=== PATIENT | female | born 1990 | race American Indian/Alaskan Native ===

== ENCOUNTER 2016-11-19 12:36 | Emergency (ER) | payer MEDICAID ==
[2016-11-19 12:53] VITALS: BP 130/88
[2016-11-19] MEDS ORDERED: PROVENTIL IH ONE (12:56)
[2016-11-19] MEDS ORDERED: TYLENOL #3 PO ONE (12:58)
--- NOTE | 2016-11-19 12:59 | Emergency Department Report ---
Chief Complaint: Adult Asthma Stated Complaint: ASTHMA Time Seen by Provider: 11/19/16 12:54 - HPI History of Present Illness: 26-year-old -[place]ish female comes in for complaint of shortness of breath 1 month. Patient works as a history of asthma and was recently seen about 2 weeks ago in the ER in [place]. At that time they only gave her a limited supply of medication. Patient comes in today still complains of shortness of breath as well as coughing up yellow and green mucus. Patient denies any fever chills no nausea vomiting she complains of headaches. Patient complains of chest and back pain with deep breaths.. Is just completed a course of azithromycin. - Exam Vital Signs: Vital Signs 11/19/16 12:47 Temperature 98.3 F Pulse Rate 118 H Respiratory 24 Rate Blood Pressure 130/88 O2 Sat by Pulse 100 Oximetry Physical Exam: He is alert and oriented 3 cardiovascular she is mildly tachycardic, mildly tachypneic at 24, she is satting 100% on room air. There is some inspiratory wheeze bilateral. MSE screening note: Focused history and physical exam performed. Due to findings the following was ordered: Patient's been ordered a albuterol neb 5 mg, Solu-Medrol 40 mg IM and Tylenol No. 3 by mouth. ED Disposition for MSE Condition: Stable
[2016-11-19] MEDS ORDERED: DUONEB 0.5 MG-3 MG/3 ML SOLN IH ONE (14:47)
--- NOTE | 2016-11-19 14:52 | Emergency Department Report ---
ED General Adult HPI - General Chief complaint: Adult Asthma Stated complaint: ASTHMA Time Seen by Provider: 11/19/16 12:54 Source: patient Mode of arrival: Ambulatory Limitations: No Limitations - History of Present Illness Initial comments: PT states she has been wheezing and coughing for a month. PT states she has been given inhalers but they don't work. PT states she was recently seen at ED in [place] and she finished steroids and Z-pack last week. PT states she can not sleep because she is coughing. MD Complaint: asthma exacerbation Onset/Timin -: Gradual, month(s) Location: chest, back Severity scale (0 -10): 6 Quality: other (tight ) Associated Symptoms: cough, malaise. denies: fever/chills, nausea/vomiting - Related Data Allergies Allergy/AdvReac Type Severity Reaction Status Date / Time No Known Allergies Allergy Unverified 11/19/16 12:47 ED Review of Systems ROS: Stated complaint: ASTHMA Other details as noted in HPI Comment: All other systems reviewed and negative Constitutional: malaise. denies: fever Respiratory: cough (pt states her cough has been dry but she feels like she needs to cough up congestion ), shortness of breath, wheezing Musculoskeletal: back pain (hurts worse to cough ) ED Past Medical Hx - Past Medical History Previous Medical History?: Yes Hx Asthma: Yes - Surgical History Additional Surgical History: Ankle surgery - Social History Smoking Status: Never Smoker Substance Use Type: None ED Physical Exam - General Limitations: No Limitations General appearance: alert, in no apparent distress - Head Head exam: Present: atraumatic, normocephalic, normal inspection - Eye Eye exam: Present: normal appearance. Absent: conjunctival injection - ENT ENT exam: Present: normal exam, normal orophraynx - Neck Neck exam: Present: normal inspection, full ROM - Respiratory Respiratory exam: Present: wheezes, other (agustin lower lobes with exp wheeze ). Absent: respiratory distress - Cardiovascular Cardiovascular Exam: Present: normal rhythm, tachycardia - GI/Abdominal GI/Abdominal exam: Present: soft. Absent: tenderness - Extremities Exam Extremities exam: Present: normal inspection, full ROM - Back Exam Back exam: Present: normal inspection, full ROM - Neurological Exam Neurological exam: Present: alert, oriented X3 - Psychiatric Psychiatric exam: Present: normal affect, normal mood - Skin Skin exam: Present: warm, dry, intact ED Course Vital Signs 11/19/16 11/19/16 11/19/16 12:47 13:32 13:51 Temperature 98.3 F Pulse Rate 118 H Pulse Rate [ Anterior Bilateral Throughout] Pulse Rate [ 107 H 106 H Posterior Bilateral Throughout] Respiratory 24 Rate Respiratory Rate [Anterior Bilateral Throughout] Respiratory 36 H 26 H Rate [Posterior Bilateral Throughout] Blood Pressure 130/88 O2 Sat by Pulse 100 Oximetry 11/19/16 11/19/16 15:43 16:01 Temperature Pulse Rate Pulse Rate [ 83 87 Anterior Bilateral Throughout] Pulse Rate [ Posterior Bilateral Throughout] Respiratory Rate Respiratory 20 20 Rate [Anterior Bilateral Throughout] Respiratory Rate [Posterior Bilateral Throughout] Blood Pressure O2 Sat by Pulse Oximetry - Reevaluation(s) Reevaluation #1: 11/19/16 14:51 PT states she feels better after meds and neb. PT still with exp wheeze, will repeat neb and re-evaluate Reevaluation #2: 11/19/16 16:41 PT states she is feeling better sp neb. pt with slight wheeze agustin but no acute resp distress. - Pulse Oximetry Interpretation Digit-Finger Initial Pulse Oximetry Readin Actions Taken: none ED Medical Decision Making - Differential Diagnosis asthma exacerbation, bronchitis Critical care attestation.: If time is entered above; I have spent that time in minutes in the direct care of this critically ill patient, excluding procedure time. ED Disposition Clinical Impression: Asthmatic bronchitis with acute exacerbation Disposition: DISCHARGED TO HOME OR SELFCARE Is pt being admited?: No Does the pt Need Aspirin: No Condition: Stable Instructions: Asthma (ED) Referrals: MARY FRANK MD [Primary Care Provider] - 3-5 Days LILLIAM MEEK MD [Staff Physician] - 3-5 Days Time of Disposition: 16:43
== END 2016-11-19 16:48 | disposition home or self-care (01) ==
LOC: ED 12:36
DX: J45.901 Unspecified asthma with (acute) exacerbation (principal); Z98.890 Other specified postprocedural states
CPT/HCPCS: 94640; 94644; 96372; 99283; J2920

== ENCOUNTER 2016-12-07 10:51 | Emergency (ER) | payer MEDICAID | END 2016-12-07 10:52 | disposition left against medical advice (07) | LOC: ED 10:51 | DX: J45.909 Unspecified asthma, uncomplicated (principal); Z53.21 Procedure and treatment not carried out due to patient leaving prior to being seen by health care provider ==

== ENCOUNTER 2017-01-20 12:22 | Emergency (ER) | payer MEDICAID ==
[2017-01-20 12:30] VITALS: BP 128/83
[2017-01-20] MEDS ORDERED: DUONEB 0.5 MG-3 MG/3 ML SOLN IH ONE (12:31)
[2017-01-20 13:06] LABS: Hematocrit 42.1 % (30.3-42.9); Hemoglobin 14.5 gm/dl (10.1-14.3); Mean Corpuscular HGB Conc 34 % (30-34); Mean Corpuscular Hemoglobin 32 pg (28-32); Mean Corpuscular Volume 93 fl (79-97); Platelet Count 312 K/mm3 (140-440); Red Blood Count 4.52 M/mm3 (3.65-5.03); Red Cell Distribution Width 12.9 % (13.2-15.2); White Blood Count 6.4 K/mm3 (4.5-11.0)
[2017-01-20 13:41] LABS: Anion Gap 18 mmol/L; Blood Urea Nitrogen 13 mg/dL (7-17); Calcium 9.2 mg/dL (8.4-10.2); Carbon Dioxide 23 mmol/L (22-30); Chloride 99.5 mmol/L (98-107); Glucose 90 mg/dL (65-100); Potassium 4.6 mmol/L (3.6-5.0); Sodium 136 mmol/L (137-145)
[2017-01-20] MEDS ORDERED: ATROVENT IH ONE (13:49)
[2017-01-20] MEDS ORDERED: XOPENEX IH ONE (13:49)
[2017-01-20] MEDS ORDERED: DECADRON IM ONE (13:49)
--- NOTE | 2017-01-20 13:49 | Emergency Department Report ---
HPI - General Chief Complaint: Adult Asthma Time Seen by Provider: 01/20/17 13:47 - HPI HPI: Patient here reported that she had asthma attack, patient states that her anxiety has been triggering attacks. She is out of for inhaler and a nebulizer treatment. She states she takes a combination nebulizer that includes Atrovent and albuterol. She is reporting productive cough and wheezing. She said the cough is worse at night. She is reporting that she is having a lot of mucus at the back of her throat. Reports nasal congestion. Denies any fever or chills. Denies any nausea vomiting. Denies any shortness of breath or chest pain. Pain scale is 0 out of 10. ED Past Medical Hx - Past Medical History Previous Medical History?: Yes Hx Asthma: Yes - Surgical History Past Surgical History?: Yes Additional Surgical History: Ankle surgery - Family History Family history: hypertension - Social History Smoking Status: Former Smoker Substance Use Type: None - Medications Home Medications: Home Medications Medication Instructions Recorded Confirmed Last Taken Type Benzonatate [Tessalon Perles] 100 mg PO Q8HR PRN #12 capsule 11/19/16 Unknown Rx Prednisone [predniSONE 10 mg 10 mg PO .TAPER #1 tab.ds.pk 11/19/16 Unknown Rx (6-Day Pack, 21 Tabs)] Albuterol Sulfate [Ventolin HFA] 2 puff IH Q4H PRN #1 hfa.aer.ad 01/20/17 Unknown Rx Cetirizine HCl [ZyrTEC] 10 mg PO QDAY #14 capsule 01/20/17 Unknown Rx Fluticasone [Flonase] 1 spray NS QDAY #1 bottle 01/20/17 Unknown Rx Hydroxyzine HCl 25 mg PO Q8H PRN #12 tablet 01/20/17 Unknown Rx Ipratropium/Albuterol Sulfate 1 ampul IH Q4HR PRN #1 box 01/20/17 Unknown Rx [Duoneb 0.5 mg-3 mg/3 ml Soln] guaiFENesin/CODEINE [Robitussin AC] 10 ml PO QHS PRN #70 oral.liqd 01/20/17 Unknown Rx predniSONE [Deltasone] 50 mg PO QDAY #6 tab 01/20/17 Unknown Rx ED Review of Systems ROS: Stated complaint: ASTHMA ATTACK Other details as noted in HPI Comment: All other systems reviewed and negative Constitutional: denies: chills, fever Eyes: denies: eye discharge ENT: congestion. denies: ear pain, throat pain Respiratory: cough, wheezing. denies: orthopnea, shortness of breath, SOB with exertion, SOB at rest, stridor Cardiovascular: denies: chest pain, palpitations, edema, syncope Gastrointestinal: denies: abdominal pain, nausea, vomiting Musculoskeletal: denies: back pain, arthralgia Skin: denies: rash Neurological: denies: headache, numbness, paresthesias, abnormal gait, vertigo Physical Exam - Physical Exam Vital Signs: Vital Signs 01/20/17 01/20/17 01/20/17 12:27 12:36 12:54 Temperature 98.2 F Pulse Rate 104 H Pulse Rate [ 97 H 101 H Posterior Bilateral Throughout] Respiratory 18 Rate Respiratory 22 20 Rate [Posterior Bilateral Throughout] Blood Pressure 128/83 O2 Sat by Pulse 100 Oximetry Vital Signs 01/20/17 01/20/17 01/20/17 12:27 12:36 12:54 Temperature 98.2 F Pulse Rate 104 H Pulse Rate [ 97 H 101 H Posterior Bilateral Throughout] Respiratory 18 Rate Respiratory 22 20 Rate [Posterior Bilateral Throughout] Blood Pressure 128/83 O2 Sat by Pulse 100 Oximetry 01/20/17 01/20/17 01/20/17 13:57 14:22 14:44 Temperature Pulse Rate 80 Pulse Rate [ 104 H 107 H Posterior Bilateral Throughout] Respiratory Rate Respiratory 18 18 Rate [Posterior Bilateral Throughout] Blood Pressure O2 Sat by Pulse Oximetry General: This is a 26-year-old female well-nourished well-developed in no acute distress. Physical Exam: Head: Normocephalic atraumatic Mouth: Moist, no pharyngeal exudate or erythema. Uvula is midline and oral airway is patent. No gingival enlargement or dental tenderness. No facial swelling. No peritonsillar abscesses. Neck: Supple, no C-spine tenderness, no tracheal deviation. Nontender to palpate. no adenopathy Ears: Bilateral TMs congested without erythema .bilateral EAC without any redness swelling or drainage Eyes: Bilateral pupils equal and reactive to light, bilateral EOM intact. Bilateral sclera and conjunctiva without injection. Normal accommodation Nose: Mucosa moist, positive congestion no erythema. Positive clear drainage. maxillary and frontal sinus non-tender to palpate. Lungs: Scattered wheezing to lung goodman. Normal work of breathing . Dry cough extremity; No CCE. +2 pulses. No neurovascular compromise Cardiovascular: S1-S2, regular rate rhythm. No murmurs. Skin: clean Dry and intact no rash no lesions Psych: anxious, cooperative ED Course Vital Signs 01/20/17 01/20/17 01/20/17 12:27 12:36 12:54 Temperature 98.2 F Pulse Rate 104 H Pulse Rate [ 97 H 101 H Posterior Bilateral Throughout] Respiratory 18 Rate Respiratory 22 20 Rate [Posterior Bilateral Throughout] Blood Pressure 128/83 O2 Sat by Pulse 100 Oximetry Vital Signs 01/20/17 01/20/17 01/20/17 12:27 12:36 12:54 Temperature 98.2 F Pulse Rate 104 H Pulse Rate [ 97 H 101 H Posterior Bilateral Throughout] Respiratory 18 Rate Respiratory 22 20 Rate [Posterior Bilateral Throughout] Blood Pressure 128/83 O2 Sat by Pulse 100 Oximetry 01/20/17 01/20/17 01/20/17 13:57 14:22 14:44 Temperature Pulse Rate 80 Pulse Rate [ 104 H 107 H Posterior Bilateral Throughout] Respiratory Rate Respiratory 18 18 Rate [Posterior Bilateral Throughout] Blood Pressure O2 Sat by Pulse Oximetry - Reevaluation(s) Reevaluation #1: 01/20/17 14:51 given DuoNeb treatment in triage area times one. She reports that she felt like she needed another treatment so she was given Xopenex 1.25 mg along with Atrovent 0.5 mg, Decadron 10 mg IM and she said she felt better. Patient was also given guaifenesin with codeine 10 mg in emergency room for cough. Reevaluation, lungs are clear. 01/20/17 14:52 01/20/17 14:53 ED Medical Decision Making - Lab Data Result diagrams: 01/20/17 12:50 01/20/17 12:50 Vital Signs 01/20/17 01/20/17 01/20/17 12:27 12:36 12:54 Temperature 98.2 F Pulse Rate 104 H Pulse Rate [ 97 H 101 H Posterior Bilateral Throughout] Respiratory 18 Rate Respiratory 22 20 Rate [Posterior Bilateral Throughout] Blood Pressure 128/83 O2 Sat by Pulse 100 Oximetry 01/20/17 01/20/17 01/20/17 13:57 14:22 14:44 Temperature Pulse Rate 80 Pulse Rate [ 104 H 107 H Posterior Bilateral Throughout] Respiratory Rate Respiratory 18 18 Rate [Posterior Bilateral Throughout] Blood Pressure O2 Sat by Pulse Oximetry - Medical Decision Making ED course: Mild asthma exacerbation, cough and anxiety. given DuoNeb treatment in triage area times one. She reports that she felt like she needed another treatment so she was given Xopenex 1.25 mg along with Atrovent 0.5 mg, Decadron 10 mg IM and she said she felt better. Patient was also given guaifenesin with codeine 10 mg in emergency room for cough. Patient is anxious and she has a history of anxiety and has an swelling of hydroxyzine requesting a refill. I discussed with patient that if she is not getting relief with her nebulizer treatment she needs to follow up with a pulmonary doctor. I discussed with her that I will refer her to primary care and also pulmonary doctor to manage asthma. She discharged home with her family with prescription for hydroxyzine, albuterol and Atrovent combination nebulizer, Flonase and Zyrtec, guaifenesin with codeine and prednisone. Critical care attestation.: If time is entered above; I have spent that time in minutes in the direct care of this critically ill patient, excluding procedure time. ED Disposition Clinical Impression: Cough, Mild anxiety Asthma exacerbation attacks Qualifiers: Asthma severity: mild intermittent Qualified Code(s): J45.21 - Mild intermittent asthma with (acute) exacerbation Upper respiratory tract infection Qualifiers: URI type: unspecified URI Qualified Code(s): J06.9 - Acute upper respiratory infection, unspecified Disposition: DISCHARGED TO HOME OR SELFCARE Is pt being admited?: No Does the pt Need Aspirin: No Condition: Stable Instructions: Asthma (ED), Acute Cough (ED), Upper Respiratory Infection (ED) Additional Instructions: Please do not drive or operate heavy machinery while taking hydroxyzine Follow-up with primary care physician and pulmonary doctor that he will refer to. Take Medication as prescribed. Your inhaler pump is for rescue only say a few using that more than twice a week he will need to follow-up with pulmonary doctor for evaluation and treatment. Avoid driving or operating heavy machinery while taking cough medicine as this will cause drowsiness. Prescriptions: guaiFENesin/CODEINE [Robitussin AC] 10 ml PO QHS PRN #70 oral.liqd PRN Reason: Cough Albuterol Sulfate [Ventolin HFA] 2 puff IH Q4H PRN #1 hfa.aer.ad PRN Reason: Cough and Wheezing Cetirizine HCl [ZyrTEC] 10 mg PO QDAY #14 capsule Fluticasone [Flonase] 1 spray NS QDAY #1 bottle Hydroxyzine HCl 25 mg PO Q8H PRN #12 tablet PRN Reason: Anxiety Ipratropium/Albuterol Sulfate [Duoneb 0.5 mg-3 mg/3 ml Soln] 1 ampul IH Q4HR PRN #1 box PRN Reason: Cough and wheezing predniSONE [Deltasone] 50 mg PO QDAY #6 tab Referrals: RADHA POWELL MD [Staff Physician] - 2-3 Days ALISON ROSA MD [Staff Physician] - 3-5 Days Forms: Accompanied Note, Work/School Release Form(ED)
[2017-01-20] MEDS ORDERED: ROBITUSSIN AC PO ONE (14:00)
== END 2017-01-20 15:20 | disposition home or self-care (01) ==
LOC: ED 12:22
DX: J45.21 Mild intermittent asthma with (acute) exacerbation (principal); J06.9 Acute upper respiratory infection, unspecified; F41.9 Anxiety disorder, unspecified; Z87.891 Personal history of nicotine dependence
CPT/HCPCS: 36415; 80048; 85027; 94640; 96372; 99283; J1100

== ENCOUNTER 2017-04-15 13:19 | Emergency (ER) | payer MEDICAID ==
[2017-04-15] MEDS ORDERED: DUONEB *Not for PRN Use IH ONE ×2 (13:33→13:39)
[2017-04-15] MEDS ORDERED: PROVENTIL IH ONE (13:47)
[2017-04-15] MEDS ORDERED: ATROVENT IH ONE (13:47)
[2017-04-15] MEDS ORDERED: MAGNESIUM SULFATE 2GM/50ML 2 GM/50 ML BAG IV ONE (13:56)
--- NOTE | 2017-04-15 13:57 | Emergency Department Report ---
ED Asthma HPI - General Chief Complaint: Adult Asthma Stated Complaint: ASTHMA Time Seen by Provider: 04/15/17 13:46 Source: patient Mode of arrival: Ambulatory Limitations: No Limitations - History of Present Illness Initial Comments: 27-year-old female past medical history asthma presents with complaint of wheezing and shortness of breath. On exam patient is awake alert 3 states that she ran out of her asthma medications and is requesting a refill. Patient states that she has had several asthma exacerbations over the last several months. Denies any history of hospitalizations for asthma denies any history of intubations. Patient is unaware of her current peak flow. Patient denies being a smoker. Patient denies any fevers or chills but does state she has had slightly productive cough over the last few days. Denies any recent travel denies any sick contacts. Patient is able to speak in full sentences on exam MD Complaint: "asthma attack", shortness of breath, wheezing -: This morning Asthma History: childhood onset, history of frequent attac, history of prior ED visit Severity: moderate Context: ran out of meds Treatments Prior to Arrival: inhaled bronchodilator, inhaled steroid - Related Data Current Asthma Therapy: inhaled bronchodilator Previous Rx's Medication Instructions Recorded Last Taken Type Benzonatate [Tessalon Perles] 100 mg PO Q8HR PRN #12 capsule 11/19/16 Unknown Rx Prednisone [predniSONE 10 mg 10 mg PO .TAPER #1 tab.ds.pk 11/19/16 Unknown Rx (6-Day Pack, 21 Tabs)] Albuterol Sulfate [Ventolin HFA] 2 puff IH Q4H PRN #1 hfa.aer.ad 01/20/17 Unknown Rx Cetirizine HCl [ZyrTEC] 10 mg PO QDAY #14 capsule 01/20/17 Unknown Rx Fluticasone [Flonase] 1 spray NS QDAY #1 bottle 01/20/17 Unknown Rx Hydroxyzine HCl 25 mg PO Q8H PRN #12 tablet 01/20/17 Unknown Rx Ipratropium/Albuterol Sulfate 1 ampul IH Q4HR PRN #1 box 01/20/17 Unknown Rx [Duoneb 0.5 mg-3 mg/3 ml Soln] guaiFENesin/CODEINE [Robitussin AC] 10 ml PO QHS PRN #70 oral.liqd 01/20/17 Unknown Rx predniSONE [Deltasone] 50 mg PO QDAY #6 tab 01/20/17 Unknown Rx ALBUTEROL NEB's [Proventil 0.083% 2.5 mg IH Q4H PRN #1 box 04/15/17 Unknown Rx NEBS] Albuterol Sulfate [Ventolin HFA] 2 puff IH Q4H PRN #1 hfa.aer.ad 04/15/17 Unknown Rx Hydroxyzine HCl 25 mg PO Q8H PRN #30 tablet 04/15/17 Unknown Rx Prednisone [predniSONE 10 mg 10 mg PO .TAPER #1 tab.ds.pk 04/15/17 Unknown Rx (6-Day Pack, 21 Tabs)] Allergies Allergy/AdvReac Type Severity Reaction Status Date / Time No Known Allergies Allergy Unverified 11/19/16 12:47 ED Review of Systems ROS: Stated complaint: ASTHMA Other details as noted in HPI Constitutional: denies: chills, fever Eyes: denies: eye pain, eye discharge, vision change ENT: denies: ear pain, throat pain Respiratory: shortness of breath, wheezing. denies: cough Cardiovascular: denies: chest pain, palpitations Endocrine: no symptoms reported Gastrointestinal: denies: abdominal pain, nausea, diarrhea Genitourinary: denies: urgency, dysuria, discharge Musculoskeletal: denies: back pain, joint swelling, arthralgia Skin: denies: rash, lesions Neurological: denies: headache, weakness, paresthesias Psychiatric: denies: anxiety, depression Hematological/Lymphatic: denies: easy bleeding, easy bruising ED Past Medical Hx - Past Medical History Previous Medical History?: Yes Hx Asthma: Yes - Surgical History Past Surgical History?: Yes Additional Surgical History: Ankle surgery - Social History Smoking Status: Never Smoker Substance Use Type: Alcohol, Prescribed - Medications Home Medications: Home Medications Medication Instructions Recorded Confirmed Last Taken Type Benzonatate [Tessalon Perles] 100 mg PO Q8HR PRN #12 capsule 11/19/16 Unknown Rx Prednisone [predniSONE 10 mg 10 mg PO .TAPER #1 tab.ds.pk 11/19/16 Unknown Rx (6-Day Pack, 21 Tabs)] Albuterol Sulfate [Ventolin HFA] 2 puff IH Q4H PRN #1 hfa.aer.ad 01/20/17 Unknown Rx Cetirizine HCl [ZyrTEC] 10 mg PO QDAY #14 capsule 01/20/17 Unknown Rx Fluticasone [Flonase] 1 spray NS QDAY #1 bottle 01/20/17 Unknown Rx Hydroxyzine HCl 25 mg PO Q8H PRN #12 tablet 01/20/17 Unknown Rx Ipratropium/Albuterol Sulfate 1 ampul IH Q4HR PRN #1 box 01/20/17 Unknown Rx [Duoneb 0.5 mg-3 mg/3 ml Soln] guaiFENesin/CODEINE [Robitussin AC] 10 ml PO QHS PRN #70 oral.liqd 01/20/17 Unknown Rx predniSONE [Deltasone] 50 mg PO QDAY #6 tab 01/20/17 Unknown Rx ALBUTEROL NEB's [Proventil 0.083% 2.5 mg IH Q4H PRN #1 box 04/15/17 Unknown Rx NEBS] Albuterol Sulfate [Ventolin HFA] 2 puff IH Q4H PRN #1 hfa.aer.ad 04/15/17 Unknown Rx Hydroxyzine HCl 25 mg PO Q8H PRN #30 tablet 04/15/17 Unknown Rx Prednisone [predniSONE 10 mg 10 mg PO .TAPER #1 tab.ds.pk 04/15/17 Unknown Rx (6-Day Pack, 21 Tabs)] ED Physical Exam - General Limitations: No Limitations General appearance: alert, in no apparent distress - Head Head exam: Present: atraumatic, normocephalic - Eye Eye exam: Present: normal appearance, PERRL, EOMI - ENT ENT exam: Present: mucous membranes moist - Neck Neck exam: Present: normal inspection - Respiratory Respiratory exam: Present: wheezes (bilateral wheezes on auscultation of both lung goodman). Absent: respiratory distress - Cardiovascular Cardiovascular Exam: Present: regular rate, normal rhythm. Absent: systolic murmur, diastolic murmur, rubs, gallop - GI/Abdominal GI/Abdominal exam: Present: soft, normal bowel sounds - Extremities Exam Extremities exam: Present: normal inspection - Back Exam Back exam: Present: normal inspection - Neurological Exam Neurological exam: Present: alert, oriented X3 - Psychiatric Psychiatric exam: Present: normal affect, normal mood - Skin Skin exam: Present: warm, dry, intact, normal color. Absent: rash ED Course Vital Signs 04/15/17 04/15/17 04/15/17 13:22 13:41 13:43 Temperature 98.1 F Pulse Rate 93 H Pulse Rate [ Bilateral Throughout] Respiratory 22 22 Rate Respiratory Rate [Bilateral Throughout] Blood Pressure [Right] O2 Sat by Pulse 100 92 99 Oximetry 04/15/17 04/15/17 04/15/17 14:08 14:33 16:26 Temperature Pulse Rate 124 H Pulse Rate [ 104 H Bilateral Throughout] Respiratory 20 18 Rate Respiratory 20 Rate [Bilateral Throughout] Blood Pressure 114/81 [Right] O2 Sat by Pulse 99 99 Oximetry ED Medical Decision Making - Lab Data Result diagrams: 04/15/17 14:05 04/15/17 14:05 - Medical Decision Making A/P: Asthma exacerbation 1-chest x-ray unremarkable, d-dimer unremarkable, labs unremarkable 2-patient experienced significant relief of wheezing and shortness of breath with prednisone and albuterol and magnesium 3-peak flow 375 L/min after second DuoNeb treatment 4- referral to primary care and pulmonology, patient requesting pulmonology referral if she states that she has had a history of more frequent attacks within the last year 5- patient's vital signs normal and oxygen over 97% on room air or discharge, patient states she feels significant relief and wheezing has significantly diminished on auscultation Critical care attestation.: If time is entered above; I have spent that time in minutes in the direct care of this critically ill patient, excluding procedure time. ED Disposition Clinical Impression: Asthma exacerbation, Wheezing Disposition: DC-01 TO HOME OR SELFCARE Is pt being admited?: No Does the pt Need Aspirin: No Condition: Stable Instructions: Asthma (ED), Reactive Airways Disease (ED) Prescriptions: ALBUTEROL NEB's [Proventil 0.083% NEBS] 2.5 mg IH Q4H PRN #1 box PRN Reason: Wheezing Albuterol Sulfate [Ventolin HFA] 2 puff IH Q4H PRN #1 hfa.aer.ad PRN Reason: Shortness Of Breath Hydroxyzine HCl 25 mg PO Q8H PRN #30 tablet PRN Reason: Congestion Prednisone [predniSONE 10 mg (6-Day Pack, 21 Tabs)] 10 mg PO .TAPER #1 tab.ds.pk Referrals: PRIMARY CARE, [Primary Care Provider] - 3-5 Days DALLIN GOVEA MD [Staff Physician] - 3-5 Days REJI CRISTOBAL MD [Staff Physician] - 3-5 Days Forms: Work/School Release Form(ED) Time of Disposition: 16:36
[2017-04-15 14:42] LABS: Basophils % (Auto) 1.1 % (0.0-1.8); Eosinophils % (Auto) 10.3 % (0.0-4.3); Hematocrit 46.4 % (30.3-42.9); Hemoglobin 15.9 gm/dl (10.1-14.3); Mean Corpuscular HGB Conc 34 % (30-34); Mean Corpuscular Hemoglobin 32 pg (28-32); Mean Corpuscular Volume 94 fl (79-97); Platelet Count 323 K/mm3 (140-440); Red Blood Count 4.93 M/mm3 (3.65-5.03); Red Cell Distribution Width 12.6 % (13.2-15.2); White Blood Count 6.3 K/mm3 (4.5-11.0)
[2017-04-15 14:53] LABS: Blood Urea Nitrogen 12 mg/dL (7-17); Calcium 9.1 mg/dL (8.4-10.2); Glucose 97 mg/dL (65-100); Sodium 136 mmol/L (137-145)
[2017-04-15 15:16] LABS: Anion Gap 18 mmol/L; Carbon Dioxide 24 mmol/L (22-30); Potassium 3.9 mmol/L (3.6-5.0)
--- NOTE | 2017-04-15 15:46 | XRay Report ---
FINAL REPORT EXAM: XR CHEST ROUTINE 2V HISTORY: shortness of breath TECHNIQUE: Frontal and lateral chest x-ray. PRIORS: None. FINDINGS: Cardiac and mediastinal silhouette within normal limits. Lungs are normally expanded without significant vascular congestion. No focal consolidation, pleural effusions or apparent pneumothorax. IMPRESSION: 1. No acute findings.
[2017-04-15 16:26] VITALS: BP 114/81
== END 2017-04-15 16:48 | disposition home or self-care (01) ==
LOC: ED 13:19
DX: J45.901 Unspecified asthma with (acute) exacerbation (principal)
CPT/HCPCS: 36415; 71020; 80048; 84703; 85025; 85379; 94640; 96365; 96375; 99284; J2930; J3475

== ENCOUNTER 2017-07-19 15:02 | Emergency (ER) | payer MEDICAID ==
[2017-07-19] MEDS ORDERED: PROVENTIL IH ONE (15:14)
[2017-07-19] MEDS ORDERED: ATROVENT IH ONE (15:15)
[2017-07-19 17:42] VITALS: BP 141/94
--- NOTE | 2017-07-19 17:54 | Emergency Department Report ---
ED Asthma HPI - General Chief Complaint: Adult Asthma Stated Complaint: COUGHING Source: patient Mode of arrival: Ambulatory Limitations: No Limitations - History of Present Illness Initial Comments: 27 y/o F with a remote asthma hx presents to the ER complaining of an asthma exacerbation since yesterday. She states that she has been trying her at home Symbicort and albuterol with no help thus far. She states that she has a long hx of asthma and has been seen numerous times for the same issue. She admits to wheezing, SOB,productive cough, and sore throat. She also admits to mild sinus congestion. no reported over-night hospitalizations or intubations for asthma. non smoker. She denies any chest pain, fever, chills, nausea, or vomiting. lmp: 07/16/17 NKDA. BROOKS Complaint: "asthma attack", shortness of breath, wheezing -: days(s) (1 day) Asthma History: childhood onset, history of frequent attac, history of prior ED visit Severity: moderate Context: none known Associated Symptoms: productive cough Treatments Prior to Arrival: inhaled bronchodilator - Related Data Current Asthma Therapy: inhaled bronchodilator Previous Rx's Medication Instructions Recorded Last Taken Type Benzonatate [Tessalon Perles] 100 mg PO Q8HR PRN #12 capsule 11/19/16 Unknown Rx Prednisone [predniSONE 10 mg 10 mg PO .TAPER #1 tab.ds.pk 11/19/16 Unknown Rx (6-Day Pack, 21 Tabs)] Albuterol Sulfate [Ventolin HFA] 2 puff IH Q4H PRN #1 hfa.aer.ad 01/20/17 Unknown Rx Cetirizine HCl [ZyrTEC] 10 mg PO QDAY #14 capsule 01/20/17 Unknown Rx Fluticasone [Flonase] 1 spray NS QDAY #1 bottle 01/20/17 Unknown Rx Hydroxyzine HCl 25 mg PO Q8H PRN #12 tablet 01/20/17 Unknown Rx Ipratropium/Albuterol Sulfate 1 ampul IH Q4HR PRN #1 box 01/20/17 Unknown Rx [Duoneb 0.5 mg-3 mg/3 ml Soln] guaiFENesin/CODEINE [Robitussin AC] 10 ml PO QHS PRN #70 oral.liqd 01/20/17 Unknown Rx predniSONE [Deltasone] 50 mg PO QDAY #6 tab 01/20/17 Unknown Rx Albuterol Sulfate [Ventolin HFA] 2 puff IH Q4H PRN #1 hfa.aer.ad 04/15/17 Unknown Rx Hydroxyzine HCl 25 mg PO Q8H PRN #30 tablet 04/15/17 Unknown Rx Prednisone [predniSONE 10 mg 10 mg PO .TAPER #1 tab.ds.pk 04/15/17 Unknown Rx (6-Day Pack, 21 Tabs)] ALBUTEROL NEB's [Proventil 0.083% 2.5 mg IH Q4H PRN #1 box 07/19/17 Unknown Rx NEBS] Benzonatate [Tessalon Perles] 100 mg PO Q8HR PRN #15 capsule 07/19/17 Unknown Rx Budesonide/Formoterol Fumarate 10.2 gm IH BID PRN #1 hfa.aer.ad 07/19/17 Unknown Rx [Symbicort 160-4.5 Mcg Inhaler] predniSONE [Deltasone] 20 mg PO QDAY #5 tab 07/19/17 Unknown Rx Allergies Allergy/AdvReac Type Severity Reaction Status Date / Time No Known Allergies Allergy Unverified 11/19/16 12:47 ED Review of Systems ROS: Stated complaint: COUGHING Other details as noted in HPI Constitutional: denies: chills, fever Eyes: denies: eye pain, eye discharge, vision change ENT: throat pain, congestion Respiratory: cough, shortness of breath, wheezing Cardiovascular: denies: chest pain, palpitations Gastrointestinal: denies: abdominal pain, nausea, diarrhea Genitourinary: denies: urgency, dysuria, discharge Musculoskeletal: denies: back pain, joint swelling, arthralgia Skin: denies: rash, lesions Neurological: denies: headache, weakness, paresthesias Psychiatric: denies: anxiety, depression ED Past Medical Hx - Past Medical History Previous Medical History?: Yes Hx Asthma: Yes - Surgical History Past Surgical History?: Yes Additional Surgical History: Ankle surgery - Social History Smoking Status: Never Smoker Substance Use Type: None - Medications Home Medications: Home Medications Medication Instructions Recorded Confirmed Last Taken Type Benzonatate [Tessalon Perles] 100 mg PO Q8HR PRN #12 capsule 11/19/16 Unknown Rx Prednisone [predniSONE 10 mg 10 mg PO .TAPER #1 tab.ds.pk 11/19/16 Unknown Rx (6-Day Pack, 21 Tabs)] Albuterol Sulfate [Ventolin HFA] 2 puff IH Q4H PRN #1 hfa.aer.ad 01/20/17 Unknown Rx Cetirizine HCl [ZyrTEC] 10 mg PO QDAY #14 capsule 01/20/17 Unknown Rx Fluticasone [Flonase] 1 spray NS QDAY #1 bottle 01/20/17 Unknown Rx Hydroxyzine HCl 25 mg PO Q8H PRN #12 tablet 01/20/17 Unknown Rx Ipratropium/Albuterol Sulfate 1 ampul IH Q4HR PRN #1 box 01/20/17 Unknown Rx [Duoneb 0.5 mg-3 mg/3 ml Soln] guaiFENesin/CODEINE [Robitussin AC] 10 ml PO QHS PRN #70 oral.liqd 01/20/17 Unknown Rx predniSONE [Deltasone] 50 mg PO QDAY #6 tab 01/20/17 Unknown Rx Albuterol Sulfate [Ventolin HFA] 2 puff IH Q4H PRN #1 hfa.aer.ad 04/15/17 Unknown Rx Hydroxyzine HCl 25 mg PO Q8H PRN #30 tablet 04/15/17 Unknown Rx Prednisone [predniSONE 10 mg 10 mg PO .TAPER #1 tab.ds.pk 04/15/17 Unknown Rx (6-Day Pack, 21 Tabs)] ALBUTEROL NEB's [Proventil 0.083% 2.5 mg IH Q4H PRN #1 box 07/19/17 Unknown Rx NEBS] Benzonatate [Tessalon Perles] 100 mg PO Q8HR PRN #15 capsule 07/19/17 Unknown Rx Budesonide/Formoterol Fumarate 10.2 gm IH BID PRN #1 hfa.aer.ad 07/19/17 Unknown Rx [Symbicort 160-4.5 Mcg Inhaler] predniSONE [Deltasone] 20 mg PO QDAY #5 tab 07/19/17 Unknown Rx ED Physical Exam - General Limitations: No Limitations General appearance: alert, in no apparent distress - Head Head exam: Present: atraumatic, normocephalic - Eye Eye exam: Present: normal appearance, PERRL Pupils: Present: normal accommodation - ENT ENT exam: Present: mucous membranes moist, other (no evidence of asbscess or exudates, very mild clear nasal congestion noted in b/l nasal canals) - Neck Neck exam: Present: normal inspection, full ROM - Respiratory Respiratory exam: Present: normal lung sounds bilaterally, other (there was no wheezing, resp distress, or accessory muscle usage noted when I examined her after breathing treatments were given- she was speaking in full sentences to me with no issues, however, triage stated that pt had diffuse expiratory wheezes and was sliightly labored upon arrival to the ED) - Cardiovascular Cardiovascular Exam: Present: regular rate, normal rhythm. Absent: systolic murmur, diastolic murmur, rubs, gallop - GI/Abdominal GI/Abdominal exam: Present: soft, normal bowel sounds - Neurological Exam Neurological exam: Present: alert, oriented X3 - Psychiatric Psychiatric exam: Present: normal affect, normal mood ED Course Vital Signs 07/19/17 07/19/17 15:06 17:40 Temperature 98.2 F 97.4 F L Pulse Rate 97 H 86 Respiratory 22 18 Rate Blood Pressure 134/76 Blood Pressure 141/94 [Right] O2 Sat by Pulse 98 97 Oximetry ED Medical Decision Making - Medical Decision Making Pt denied CXR and further cardiac/pulmonary work-up at this time. Risks were explained to the patient with a witness. She signed AMA form for refusal of services prior to discharge from the ER. She states that she has come to the ER multiple times for the same issue and she has had a complete work-up with nothing found and she states that she does not want to go through all that at this time. pt was given proventil nebs and atrovent along with solumedrol 125 mg here in the ED with total improvement of her symptoms. Pt had no wheezing and no respiratory distress s/p this treatment. Pt was discharged home with refills of her 'home" medications: Symbicort and albuterol nebs. She was also given prednisone steriod for the asthma exacerbation and tessalon perles for the cough. Referrals to pulmonary and pcp provided for the patient today. Pt was discharged in stable condition, alert and oriented, and in no respiratory distress. She was sepaking to me in full sentences without issues. O2 sat was 97% and resp rate was 18 at discharge. Critical care attestation.: If time is entered above; I have spent that time in minutes in the direct care of this critically ill patient, excluding procedure time. ED Disposition Clinical Impression: Asthma exacerbation Qualifiers: Asthma severity: moderate Asthma persistence: unspecified Qualified Code(s): J45.901 - Unspecified asthma with (acute) exacerbation Disposition: - TO HOME OR SELFCARE Is pt being admited?: No Does the pt Need Aspirin: No Condition: Stable Instructions: Albuterol (By breathing), Budesonide/Formoterol (By breathing) Additional Instructions: Please be advised that cough suppressant may make you drowsy. Please take your medications as directed. Please follow-up with PCP within 1 week. referral to a marine oiler has been provided to you please follow-up with them for continued care within 3-5 days. Please return to the ER immediately if your presenting symptoms progress or worsen. Prescriptions: ALBUTEROL NEB's [Proventil 0.083% NEBS] 2.5 mg IH Q4H PRN #1 box PRN Reason: Wheezing Benzonatate [Tessalon Perles] 100 mg PO Q8HR PRN #15 capsule PRN Reason: cough Budesonide/Formoterol Fumarate [Symbicort 160-4.5 Mcg Inhaler] 10.2 gm IH BID PRN #1 hfa.aer.ad PRN Reason: asthma predniSONE [Deltasone] 20 mg PO QDAY #5 tab Referrals: [facility] [Outside] - 3-5 Days [facility] [Outside] - 3-5 Days [facility], [Primary Care Provider] - 3-5 Days JANNA SPARKS MD [Staff Physician] - 3-5 Days [facility] [Referring] - 3-5 Days Forms: Work/School Release Form(ED)
== END 2017-07-19 17:54 | disposition home or self-care (01) ==
LOC: ED 15:02
DX: J45.901 Unspecified asthma with (acute) exacerbation (principal)
CPT/HCPCS: 94640; 96372; 99283; J2930

== ENCOUNTER 2017-10-09 11:34 | Emergency (ER) | payer MEDICAID | END 2017-10-09 11:51 | disposition left against medical advice (07) | LOC: ED 11:34 | DX: R06.02 Shortness of breath (principal); Z53.21 Procedure and treatment not carried out due to patient leaving prior to being seen by health care provider ==

== ENCOUNTER 2018-12-08 21:34 | Emergency (ER) | payer MEDICAID ==
[2018-12-08 21:39] VITALS: BP 155/99
[2018-12-08] MEDS ORDERED: SOLU-Medrol IV ONE (21:43)
[2018-12-08] MEDS ORDERED: DUONEB *Not for PRN Use IH ONE (21:43)
--- NOTE | 2018-12-08 21:46 | Emergency Department Report ---
Blank Doc - Documentation Documentation: 28 y o female with athsma presents with asthma exacerbation out of meds states shes about 6 weeks , upt at home solumedrol albuterol ACC evaluate
[2018-12-08] MEDS ORDERED: PROVENTIL IH ONE ×2 (21:50→22:00)
[2018-12-09] MEDS ORDERED: SOLU-Medrol ONE (01:01)
[2018-12-09] MEDS ORDERED: SOLU-Medrol IM ONE (01:05)
--- NOTE | 2018-12-09 01:05 | Emergency Department Report ---
ED Asthma HPI - General Chief Complaint: Adult Asthma Stated Complaint: ASTHMA ATTACK Time Seen by Provider: 12/08/18 21:41 Source: patient Mode of arrival: Ambulatory Limitations: No Limitations - History of Present Illness Initial Comments: 28-year-old -Martiniquais female comes to the emergency room for any asthma symptoms 1 week. Patient reports that she ran out of her inhalers. Patient reports she's been out of her albuterol as a medication for months. She reports she is 6 weeks . She denies any chest pain no shortness of breathing. -: week(s) (2) Severity: mild Context: ran out of meds Associated Symptoms: dry cough Treatments Prior to Arrival: other (normal saline nebulizer treatments) - Related Data Current Asthma Therapy: none Previous Rx's Medication Instructions Recorded Last Taken Type Benzonatate [Tessalon Perles] 100 mg PO Q8HR PRN #12 capsule 11/19/16 Unknown Rx Prednisone [predniSONE 10 mg 10 mg PO .TAPER #1 tab.ds.pk 11/19/16 Unknown Rx (6-Day Pack, 21 Tabs)] Albuterol Sulfate [Ventolin HFA] 2 puff IH Q4H PRN #1 hfa.aer.ad 01/20/17 Unknown Rx Cetirizine HCl [ZyrTEC] 10 mg PO QDAY #14 capsule 01/20/17 Unknown Rx Fluticasone [Flonase] 1 spray NS QDAY #1 bottle 01/20/17 Unknown Rx Ipratropium/Albuterol Sulfate 1 ampul IH Q4HR PRN #1 box 01/20/17 Unknown Rx [Duoneb 0.5 mg-3 mg/3 ml Soln] guaiFENesin/CODEINE [Robitussin AC] 10 ml PO QHS PRN #70 oral.liqd 01/20/17 Unknown Rx hydrOXYzine HCl [Hydroxyzine HCl] 25 mg PO Q8H PRN #12 tablet 01/20/17 Unknown Rx predniSONE [Deltasone] 50 mg PO QDAY #6 tab 01/20/17 Unknown Rx Albuterol Sulfate [Ventolin HFA] 2 puff IH Q4H PRN #1 hfa.aer.ad 04/15/17 Unknown Rx Prednisone [predniSONE 10 mg 10 mg PO .TAPER #1 tab.ds.pk 04/15/17 Unknown Rx (6-Day Pack, 21 Tabs)] hydrOXYzine HCl [Hydroxyzine HCl] 25 mg PO Q8H PRN #30 tablet 04/15/17 Unknown Rx ALBUTEROL NEB's [Proventil 0.083% 2.5 mg IH Q4H PRN #1 box 07/19/17 Unknown Rx NEBS] Benzonatate [Tessalon Perles] 100 mg PO Q8HR PRN #15 capsule 07/19/17 Unknown Rx predniSONE [Deltasone] 20 mg PO QDAY #5 tab 07/19/17 Unknown Rx Budesonide/Formoterol Fumarate 10.2 gm IH BID PRN #1 hfa.aer.ad 12/09/18 Unknown Rx [Symbicort 160-4.5 Mcg Inhaler] Allergies Allergy/AdvReac Type Severity Reaction Status Date / Time No Known Allergies Allergy Unverified 11/19/16 12:47 ED Review of Systems ROS: Stated complaint: ASTHMA ATTACK Other details as noted in HPI Comment: All other systems reviewed and negative Constitutional: denies: chills, fever Eyes: denies: eye pain, eye discharge, vision change ENT: denies: ear pain, throat pain Respiratory: cough. denies: shortness of breath, wheezing Cardiovascular: denies: chest pain, palpitations Endocrine: no symptoms reported Gastrointestinal: denies: abdominal pain, nausea, diarrhea Genitourinary: denies: urgency, dysuria, discharge Musculoskeletal: denies: back pain, joint swelling, arthralgia Skin: denies: rash, lesions Neurological: denies: headache, weakness, paresthesias Psychiatric: denies: anxiety, depression Hematological/Lymphatic: denies: easy bleeding, easy bruising ED Past Medical Hx - Past Medical History Hx Psychiatric Treatment: Yes (Anxiety) Hx Asthma: Yes - Surgical History Past Surgical History?: Yes Additional Surgical History: Ankle surgery - Social History Smoking Status: Never Smoker Substance Use Type: None - Medications Home Medications: Home Medications Medication Instructions Recorded Confirmed Last Taken Type Benzonatate [Tessalon Perles] 100 mg PO Q8HR PRN #12 capsule 11/19/16 Unknown Rx Prednisone [predniSONE 10 mg 10 mg PO .TAPER #1 tab.ds.pk 11/19/16 Unknown Rx (6-Day Pack, 21 Tabs)] Albuterol Sulfate [Ventolin HFA] 2 puff IH Q4H PRN #1 hfa.aer.ad 01/20/17 Unknown Rx Cetirizine HCl [ZyrTEC] 10 mg PO QDAY #14 capsule 01/20/17 Unknown Rx Fluticasone [Flonase] 1 spray NS QDAY #1 bottle 01/20/17 Unknown Rx Ipratropium/Albuterol Sulfate 1 ampul IH Q4HR PRN #1 box 01/20/17 Unknown Rx [Duoneb 0.5 mg-3 mg/3 ml Soln] guaiFENesin/CODEINE [Robitussin AC] 10 ml PO QHS PRN #70 oral.liqd 01/20/17 Unknown Rx hydrOXYzine HCl [Hydroxyzine HCl] 25 mg PO Q8H PRN #12 tablet 01/20/17 Unknown Rx predniSONE [Deltasone] 50 mg PO QDAY #6 tab 01/20/17 Unknown Rx Albuterol Sulfate [Ventolin HFA] 2 puff IH Q4H PRN #1 hfa.aer.ad 04/15/17 Unknown Rx Prednisone [predniSONE 10 mg 10 mg PO .TAPER #1 tab.ds.pk 04/15/17 Unknown Rx (6-Day Pack, 21 Tabs)] hydrOXYzine HCl [Hydroxyzine HCl] 25 mg PO Q8H PRN #30 tablet 04/15/17 Unknown Rx ALBUTEROL NEB's [Proventil 0.083% 2.5 mg IH Q4H PRN #1 box 07/19/17 Unknown Rx NEBS] Benzonatate [Tessalon Perles] 100 mg PO Q8HR PRN #15 capsule 07/19/17 Unknown Rx predniSONE [Deltasone] 20 mg PO QDAY #5 tab 07/19/17 Unknown Rx Budesonide/Formoterol Fumarate 10.2 gm IH BID PRN #1 hfa.aer.ad 12/09/18 Unknown Rx [Symbicort 160-4.5 Mcg Inhaler] ED Physical Exam - General Limitations: No Limitations General appearance: alert, in no apparent distress - Head Head exam: Present: atraumatic, normocephalic - Eye Eye exam: Present: EOMI - ENT ENT exam: Present: mucous membranes moist - Neck Neck exam: Present: normal inspection - Respiratory Respiratory exam: Present: normal lung sounds bilaterally. Absent: respiratory distress - Cardiovascular Cardiovascular Exam: Present: regular rate (recheck by provider is 96) - GI/Abdominal GI/Abdominal exam: Present: soft, normal bowel sounds - Neurological Exam Neurological exam: Present: alert, oriented X3 - Psychiatric Psychiatric exam: Present: normal affect, normal mood - Skin Skin exam: Present: warm, dry, intact, normal color. Absent: rash ED Course Vital Signs 12/08/18 12/08/18 12/08/18 21:38 21:41 21:50 Temperature 98.1 F 98.1 F Pulse Rate 124 H 115 H Pulse Rate [ 104 H Anterior Bilateral] Respiratory 18 18 Rate Respiratory 17 Rate [Anterior Bilateral] Blood Pressure 155/99 155/99 O2 Sat by Pulse 97 98 Oximetry 12/08/18 22:02 Temperature Pulse Rate Pulse Rate [ 100 H Anterior Bilateral] Respiratory Rate Respiratory 18 Rate [Anterior Bilateral] Blood Pressure O2 Sat by Pulse Oximetry ED Medical Decision Making - Medical Decision Making Assessment evaluated by this provider fast track. Patient's had DuoNeb with albuterol and Solu-Medrol 125 mg IM. Patient was discharged home on Symbicort and referral to follow up with her primary care provider and primary [facility] provider. Critical care attestation.: If time is entered above; I have spent that time in minutes in the direct care of this critically ill patient, excluding procedure time. ED Disposition Clinical Impression: Asthma, Medication refill Disposition: [id number]-01 TO HOME OR SELFCARE Is pt being admited?: No Does the pt Need Aspirin: No Condition: Stable Instructions: Asthma (ED) Additional Instructions: Please us inhaler as prescribed. Follow-up with your primary care provider and/or [facility] provider. Prescriptions: Budesonide/Formoterol Fumarate [Symbicort 160-4.5 Mcg Inhaler] 10.2 gm IH BID PRN #1 hfa.aer.ad PRN Reason: asthma Referrals: AALIYAH RAMIREZ MD [Primary Care Provider] - 3-5 Days [facility] [Provider Group] - 3-5 Days [facility] [Provider Group] - 3-5 Days
== END 2018-12-09 01:15 | disposition home or self-care (01) ==
LOC: ED 21:34
DX: O99.511 Diseases of the respiratory system complicating pregnancy, first trimester (principal); J45.909 Unspecified asthma, uncomplicated; Z3A.01 Less than 8 weeks gestation of pregnancy
CPT/HCPCS: 94640; 96372; 99282; J2930

== ENCOUNTER 2019-06-29 12:37 | Emergency (ER) | payer MEDICAID ==
[2019-06-29 12:54] VITALS: BP 139/82
--- NOTE | 2019-06-29 13:00 | Event Note ---
ED Screening Note Date of service: 06/29/19 Time: 12:53 ED Screening Note: This is a 29 y.o. F. that presents to the ER with left sided facial swelling upon awaking this morning. This initial assessment/diagnostic orders/clinical plan/treatment(s) is/are subject to change based on patients health status, clinical progression and re- assessment by fellow clinical providers in the ED. Further treatment and workup at subsequent clinical providers discretion. Patient/guardian urged not to elope from the ED as their condition may be serious if not clinically assessed and managed. Initial orders include: CT of orbit/ear/fossa
--- NOTE | 2019-06-29 14:19 | Emergency Department Report ---
- General Chief complaint: Skin/Abscess/Foreign Body Stated complaint: LFT SIDE FACE SWELLING/SPIDER Time Seen by Provider: 06/29/19 12:53 Source: patient Mode of arrival: Ambulatory Limitations: No Limitations - History of Present Illness Initial comments: 29-year-old female with a past medical history of asthma and anxiety presents to the hospital complaining of swelling to left jaw anterior to the ear. Patient woke up with symptoms this morning. Pain is constant, rated 8/10 in intensity, worse a palpation and opening jaw wide. Patient denies any dental pain or trauma. She also denies earache, fever, or difficulty swallowing. - Related Data Previous Rx's Medication Instructions Recorded Last Taken Type Benzonatate [Tessalon Perles] 100 mg PO Q8HR PRN #12 capsule 11/19/16 Unknown Rx Prednisone [predniSONE 10 mg 10 mg PO .TAPER #1 tab.ds.pk 11/19/16 Unknown Rx (6-Day Pack, 21 Tabs)] Albuterol Sulfate [Ventolin HFA] 2 puff IH Q4H PRN #1 hfa.aer.ad 01/20/17 Unknown Rx Cetirizine HCl [ZyrTEC] 10 mg PO QDAY #14 capsule 01/20/17 Unknown Rx Fluticasone [Flonase] 1 spray NS QDAY #1 bottle 01/20/17 Unknown Rx Ipratropium/Albuterol Sulfate 1 ampul IH Q4HR PRN #1 box 01/20/17 Unknown Rx [Duoneb 0.5 mg-3 mg/3 ml Soln] guaiFENesin/CODEINE [Robitussin AC] 10 ml PO QHS PRN #70 oral.liqd 01/20/17 Unk nown Rx hydrOXYzine HCl [Hydroxyzine HCl] 25 mg PO Q8H PRN #12 tablet 01/20/17 Unknown Rx predniSONE [Deltasone] 50 mg PO QDAY #6 tab 01/20/17 Unknown Rx Albuterol Sulfate [Ventolin HFA] 2 puff IH Q4H PRN #1 hfa.aer.ad 04/15/17 Unknown Rx Prednisone [predniSONE 10 mg 10 mg PO .TAPER #1 tab.ds.pk 04/15/17 Unknown Rx (6-Day Pack, 21 Tabs)] hydrOXYzine HCl [Hydroxyzine HCl] 25 mg PO Q8H PRN #30 tablet 04/15/17 Unknown Rx ALBUTEROL NEB's [Proventil 0.083% 2.5 mg IH Q4H PRN #1 box 07/19/17 Unknown Rx NEBS] Benzonatate [Tessalon Perles] 100 mg PO Q8HR PRN #15 capsule 07/19/17 Unknown Rx predniSONE [Deltasone] 20 mg PO QDAY #5 tab 07/19/17 Unknown Rx ALBUTEROL NEB's [Proventil 0.083% 2.5 mg IH TID PRN #1 box 12/09/18 Unknown Rx NEBS] Budesonide/Formoterol Fumarate 10.2 gm IH BID PRN #1 hfa.aer.ad 12/09/18 Unknown Rx [Symbicort 160-4.5 Mcg Inhaler] Prednisone [predniSONE 10 mg 10 mg PO .TAPER #1 tab.ds.pk 12/09/18 Unknown Rx (6-Day Pack, 21 Tabs)] Amoxicillin/Potassium Clav 1 each PO BID #20 tablet 06/29/19 Unknown Rx [Augmentin 875-125 Tablet] HYDROcodone/APAP 5-325 [[place] 1 each PO Q6HR PRN #14 tablet 06/29/19 Unknown Rx 5/325] Ibuprofen [Motrin] 800 mg PO Q8HR PRN #30 tablet 06/29/19 Unknown Rx Allergies Allergy/AdvReac Type Severity Reaction Status Date / Time No Known Allergies Allergy Verified 06/29/19 12:38 Abscess Boil HPI - HPI Chief Complaint: Skin/Abscess/Foreign Body Stated Complaint: LFT SIDE FACE SWELLING/SPIDER Time Seen by Provider: 06/29/19 12:53 Home Medications: Previous Rx's Medication Instructions Recorded Last Taken Type Benzonatate [Tessalon Perles] 100 mg PO Q8HR PRN #12 capsule 11/19/16 Unknown Rx Prednisone [predniSONE 10 mg 10 mg PO .TAPER #1 tab.ds.pk 11/19/16 Unknown Rx (6-Day Pack, 21 Tabs)] Albuterol Sulfate [Ventolin HFA] 2 puff IH Q4H PRN #1 hfa.aer.ad 01/20/17 Unknown Rx Cetirizine HCl [ZyrTEC] 10 mg PO QDAY #14 capsule 01/20/17 Unknown Rx Fluticasone [Flonase] 1 spray NS QDAY #1 bottle 01/20/17 Unknown Rx Ipratropium/Albuterol Sulfate 1 ampul IH Q4HR PRN #1 box 01/20/17 Unknown Rx [Duoneb 0.5 mg-3 mg/3 ml Soln] guaiFENesin/CODEINE [Robitussin AC] 10 ml PO QHS PRN #70 oral.liqd 01/20/17 Unknown Rx hydrOXYzine HCl [Hydroxyzine HCl] 25 mg PO Q8H PRN #12 tablet 01/20/17 Unknown Rx predniSONE [Deltasone] 50 mg PO QDAY #6 tab 01/20/17 Unknown Rx Albuterol Sulfate [Ventolin HFA] 2 puff IH Q4H PRN #1 hfa.aer.ad 04/15/17 Unknown Rx Prednisone [predniSONE 10 mg 10 mg PO .TAPER #1 tab.ds.pk 04/15/17 Unknown Rx (6-Day Pack, 21 Tabs)] hydrOXYzine HCl [Hydroxyzine HCl] 25 mg PO Q8H PRN #30 tablet 04/15/17 Unknown Rx ALBUTEROL NEB's [Proventil 0.083% 2.5 mg IH Q4H PRN #1 box 07/19/17 Unknown Rx NEBS] Benzonatate [Tessalon Perles] 100 mg PO Q8HR PRN #15 capsule 07/19/17 Unknown Rx predniSONE [Deltasone] 20 mg PO QDAY #5 tab 07/19/17 Unknown Rx ALBUTEROL NEB's [Proventil 0.083% 2.5 mg IH TID PRN #1 box 12/09/18 Unknown Rx NEBS] Budesonide/Formoterol Fumarate 10.2 gm IH BID PRN #1 hfa.aer.ad 12/09/18 Unknown Rx [Symbicort 160-4.5 Mcg Inhaler] Prednisone [predniSONE 10 mg 10 mg PO .TAPER #1 tab.ds.pk 12/09/18 Unknown Rx (6-Day Pack, 21 Tabs)] Amoxicillin/Potassium Clav 1 each PO BID #20 tablet 06/29/19 Unknown Rx [Augmentin 875-125 Tablet] HYDROcodone/APAP 5-325 [[place] 1 each PO Q6HR PRN #14 tablet 06/29/19 Unknown Rx 5/325] Ibuprofen [Motrin] 800 mg PO Q8HR PRN #30 tablet 06/29/19 Unknown Rx Allergies/Adverse Reactions: Allergies Allergy/AdvReac Type Severity Reaction Status Date / Time No Known Allergies Allergy Verified 06/29/19 12:38 ED Review of Systems ROS: Stated complaint: LFT SIDE FACE SWELLING/SPIDER Other details as noted in HPI Comment: All other systems reviewed and negative ED Past Medical Hx - Past Medical History Hx Psychiatric Treatment: Yes (Anxiety) Hx Asthma: Yes - Surgical History Additional Surgical History: Ankle surgery - Social History Smoking Status: Never Smoker Substance Use Type: Alcohol - Medications Home Medications: Home Medications Medication Instructions Recorded Confirmed Last Taken Type Benzonatate [Tessalon Perles] 100 mg PO Q8HR PRN #12 capsule 11/19/16 Unknown Rx Prednisone [predniSONE 10 mg 10 mg PO .TAPER #1 tab.ds.pk 11/19/16 Unknown Rx (6-Day Pack, 21 Tabs)] Albuterol Sulfate [Ventolin HFA] 2 puff IH Q4H PRN #1 hfa.aer.ad 01/20/17 Unknown Rx Cetirizine HCl [ZyrTEC] 10 mg PO QDAY #14 capsule 01/20/17 Unknown Rx Fluticasone [Flonase] 1 spray NS QDAY #1 bottle 01/20/17 Unknown Rx Ipratropium/Albuterol Sulfate 1 ampul IH Q4HR PRN #1 box 01/20/17 Unknown Rx [Duoneb 0.5 mg-3 mg/3 ml Soln] guaiFENesin/CODEINE [Robitussin AC] 10 ml PO QHS PRN #70 oral.liqd 01/20/17 Unknown Rx hydrOXYzine HCl [Hydroxyzine HCl] 25 mg PO Q8H PRN #12 tablet 01/20/17 Unknown Rx predniSONE [Deltasone] 50 mg PO QDAY #6 tab 01/20/17 Unknown Rx Albuterol Sulfate [Ventolin HFA] 2 puff IH Q4H PRN #1 hfa.aer.ad 04/15/17 Unknown Rx Prednisone [predniSONE 10 mg 10 mg PO .TAPER #1 tab.ds.pk 04/15/17 Unknown Rx (6-Day Pack, 21 Tabs)] hydrOXYzine HCl [Hydroxyzine HCl] 25 mg PO Q8H PRN #30 tablet 04/15/17 Unknown Rx ALBUTEROL NEB's [Proventil 0.083% 2.5 mg IH Q4H PRN #1 box 07/19/17 Unknown Rx NEBS] Benzonatate [Tessalon Perles] 100 mg PO Q8HR PRN #15 capsule 07/19/17 Unknown Rx predniSONE [Deltasone] 20 mg PO QDAY #5 tab 07/19/17 Unknown Rx ALBUTEROL NEB's [Proventil 0.083% 2.5 mg IH TID PRN #1 box 12/09/18 Unknown Rx NEBS] Budesonide/Formoterol Fumarate 10.2 gm IH BID PRN #1 hfa.aer.ad 12/09/18 Unknown Rx [Symbicort 160-4.5 Mcg Inhaler] Prednisone [predniSONE 10 mg 10 mg PO .TAPER #1 tab.ds.pk 12/09/18 Unknown Rx (6-Day Pack, 21 Tabs)] Amoxicillin/Potassium Clav 1 each PO BID #20 tablet 06/29/19 Unknown Rx [Augmentin 875-125 Tablet] HYDROcodone/APAP 5-325 [[place] 1 each PO Q6HR PRN #14 tablet 06/29/19 Unknown Rx 5/325] Ibuprofen [Motrin] 800 mg PO Q8HR PRN #30 tablet 06/29/19 Unknown Rx ED Physical Exam - General Limitations: No Limitations - Other Other exam information: Gen.: No acute distress Head: Atraumatic Eyes: Normal appearance ENT: Moist mucous membranes, no posterior pharyngeal swelling, no dental pain on percussion, no gum swelling or abscess. Positive tenderness at the area of the left parotid gland anterior to the left ear. No tenderness over the mastoid. Neck: Normal appearance, no posterior midline tenderness, no meningismus Chest: Clear to auscultation bilaterally Cardiovascular: Regular rate and rhythm Abdomen: Normal appearance, soft, nontender, no rebound or guarding, normal bowel sounds Back: Normal appearance, nontender Extremity: Full range of motion, normal appearance Neuro: Alert, clear speech, no focal motor or sensory deficit Psychiatric: Appropriate Skin: No rash ED Course Vital Signs 06/29/19 12:49 Temperature 98.7 F Pulse Rate 76 Respiratory 18 Rate Blood Pressure 139/82 O2 Sat by Pulse 100 Oximetry ED Medical Decision Making - Radiology Data Radiology results: report reviewed CT facial bones wo con INDICATION / CLINICAL INFORMATION: 29 years Female; left facial/jaw swelling. TECHNIQUE: Thin cut axial images obtained to the facial bones. Sagittal and coronal reconstructions performed. All CT scans at this location are performed using CT dose reduction for ALARA by means of automated exposure control. Study limited by patient body habitus - decreased [id number] ratio. COMPARISON: None available. FINDINGS: No vitamin E capsule or metallic marker was placed to denote an area of interest. There may be some stranding near the inferior aspect of the parotid gland on the left with thickening of the adjacent platysma muscle. Mild sialoadenitis cannot be excluded. No definitive signs of abscess, although contrast was not administered. Please correlate with location of patient's symptomatology. Presumed reactive lymph nodes seen around this region. Surrounding soft tissues are otherwise grossly normal. Desiccated secretions seen in the posterior ethmoids on the left. There is also mild to moderate mucosal thickening in the ethmoids on the right. Moderate mucosal thickening is seen in the right maxillary antrum. Mucous retention cyst/polyps are seen in both maxillary antra. Desiccated secretions also seen in the right sphenoid sinus. 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 IMPRESSION: 1. Would question minimal increased stranding along the inferior margin of the parotid gland on the left-sialoadenitis might be a consideration. Please currently correlate. 2. Sinus disease noted. - Medical Decision Making plan to tx for sialoadenitis of the parotid gland no toxic appearing non febrile airway patent - Differential Diagnosis parotitis, dental abscesses, facial abscess Critical Care Time: No Critical care attestation.: If time is entered above; I have spent that time in minutes in the direct care of this critically ill patient, excluding procedure time. ED Disposition Clinical Impression: Parotitis Disposition: DC-01 TO HOME OR SELFCARE Is pt being admited?: No Does the pt Need Aspirin: No Condition: Stable Instructions: Parotid Duct Obstruction (ED) Additional Instructions: Take the medication as prescribed. Follow-up with your doctor or with the doctor/clinic provided. Return if symptoms worsen as indicated by your disch arge instructions. Prescriptions: Amoxicillin/Potassium Clav [Augmentin 875-125 Tablet] 1 each PO BID #20 tablet Ibuprofen [Motrin] 800 mg PO Q8HR PRN #30 tablet PRN Reason: Pain, Moderate (4-6) HYDROcodone/APAP 5-325 [[place] 5/325] 1 each PO Q6HR PRN #14 tablet PRN Reason: Pain Referrals: PRIMARY CARE, [Primary Care Provider] - 3-5 Days RADHA NEVILLE MD [Staff Physician] - 3-5 Days (ENT doctor ) DELFINO SHAFFER MD [Staff Physician] - 3-5 Days (ENT ) Time of Disposition: 14:49
--- NOTE | 2019-06-29 14:40 | Cat Scan Report ---
CT facial bones wo con INDICATION / CLINICAL INFORMATION: 29 years Female; left facial/jaw swelling. TECHNIQUE: Thin cut axial images obtained to the facial bones. Sagittal and coronal reconstructions performed. A ll CT scans at this location are performed using CT dose reduction for ALARA by means of automated ex posure control. Study limited by patient body habitus - decreased swynrh-il-zbozw ratio. COMPARISON: None available. FINDINGS: No vitamin E capsule or metallic marker was placed to denote an area of interest. There may be some stranding near the inferior aspect of the parotid gland on the left with thickening of the adjacent platysma muscle. Mild sialoadenitis cannot be excluded. No definitive signs of absce ss, although contrast was not administered. Please correlate with location of patient's symptomatolog y. Presumed reactive lymph nodes seen around this region. Surrounding soft tissues are otherwise grossly normal. Desiccated secretions seen in the posterior ethmoids on the left. There is also mild to moderate muco vaibhav thickening in the ethmoids on the right. Moderate mucosal thickening is seen in the right maxilla ry antrum. Mucous retention cyst/polyps are seen in both maxillary antra. Desiccated secretions also seen in the right sphenoid sinus. 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 IMPRESSION: 1. Would question minimal increased stranding along the inferior margin of the parotid gland on the l eft-sialoadenitis might be a consideration. Please currently correlate. 2. Sinus disease noted. Signer Name: Anthony Gutierrez MD, III Signed: 06/29/2019 2:36 PM Workstation Name: [id number]
[2019-06-29] MEDS ORDERED: TORADOL IM ONE (14:55)
== END 2019-06-29 15:30 | disposition home or self-care (01) ==
LOC: ED 12:37
DX: K11.20 Sialoadenitis, unspecified (principal); J45.909 Unspecified asthma, uncomplicated; F41.9 Anxiety disorder, unspecified; Z79.899 Other long term (current) drug therapy; Z79.1 Long term (current) use of non-steroidal anti-inflammatories (NSAID)
CPT/HCPCS: 70486; 96372; 99283; J1885

== ENCOUNTER 2019-09-01 05:54 | Emergency (ER) | payer MEDICAID ==
[2019-09-01 10:26] VITALS: BP 150/99
== END 2019-09-01 10:28 | disposition home or self-care (01) ==
LOC: ED 05:54
DX: J45.901 Unspecified asthma with (acute) exacerbation (principal); F41.9 Anxiety disorder, unspecified; Z98.890 Other specified postprocedural states; Z79.1 Long term (current) use of non-steroidal anti-inflammatories (NSAID); Z79.899 Other long term (current) drug therapy
CPT/HCPCS: 94640; 96372; 99282; J1100; 94644

== ENCOUNTER 2019-09-24 05:48 | Emergency (ER) | payer MEDICAID ==
[2019-09-24] MEDS ORDERED: ONDANSETRON 4 MG/2 ML INJ ONE (06:02)
[2019-09-24] MEDS ORDERED: ONDANSETRON 4 MG/2 ML INJ IV ONE (06:04)
[2019-09-24] MEDS ORDERED: IPRATROPIUM/ALBUTEROL SULFATE 3 ML AMPUL.NEB IH ONE (06:12)
[2019-09-24] MEDS ORDERED: ALBUTEROL 2.5 MG/3 ML NEBU IH ONE (06:16)
[2019-09-24] MEDS ORDERED: IPRATROPIUM 0.02% NEBU 2.5 ML IH ONE (06:16)
--- NOTE | 2019-09-24 06:18 | Emergency Department Report ---
HPI - General Time Seen by Provider: 09/24/19 06:09 - HPI HPI: Room 21 The patient is a 29-year-old female presenting with a chief complaint of asthma exacerbation. Patient states for the past 2-3 days she's had an exacerbation of her asthma. Patient states she was taking nebulizers at home or ran out of her Atrovent. Patient is to call this an occasional productive yellow sputum. Patient denies history of fever Location: [See above] Duration: [See above] Quality: [See above] Severity: [See above] Timing: [See above] Context: [See above] Modifying factors: [See above] Associated signs and symptoms: [see above] ED Past Medical Hx - Past Medical History Hx Psychiatric Treatment: Yes (Anxiety) Hx Asthma: Yes - Surgical History Additional Surgical History: Ankle surgery - Family History Family history: no significant - Social History Smoking Status: Never Smoker Substance Use Type: None (denies illicit drug use) - Medications Home Medications: Home Medications Medication Instructions Recorded Confirmed Last Taken Type Benzonatate [Tessalon Perles] 100 mg PO Q8HR PRN #12 capsule 11/19/16 Unknown Rx Prednisone [predniSONE 10 mg 10 mg PO .TAPER #1 tab.ds.pk 11/19/16 Unknown Rx (6-Day Pack, 21 Tabs)] Albuterol Sulfate [Ventolin HFA] 2 puff IH Q4H PRN #1 hfa.aer.ad 01/20/17 Unknown Rx Cetirizine HCl [ZyrTEC] 10 mg PO QDAY #14 capsule 01/20/17 Unknown Rx Fluticasone [Flonase] 1 spray NS QDAY #1 bottle 01/20/17 Unknown Rx hydrOXYzine HCL [Hydroxyzine HCl] 25 mg PO Q8H PRN #12 tablet 01/20/17 Unknown Rx predniSONE [Deltasone] 50 mg PO QDAY #6 tab 01/20/17 Unknown Rx Albuterol Sulfate [Ventolin HFA] 2 puff IH Q4H PRN #1 hfa.aer.ad 04/15/17 Unknown Rx Prednisone [predniSONE 10 mg 10 mg PO .TAPER #1 tab.ds.pk 04/15/17 Unknown Rx (6-Day Pack, 21 Tabs)] hydrOXYzine HCL [Hydroxyzine HCl] 25 mg PO Q8H PRN #30 tablet 04/15/17 Unknown Rx ALBUTEROL NEB's [Proventil 0.083% 2.5 mg IH Q4H PRN #1 box 07/19/17 Unknown Rx NEBS] predniSONE [Deltasone] 20 mg PO QDAY #5 tab 07/19/17 Unknown Rx ALBUTEROL NEB's [Proventil 0.083% 2.5 mg IH TID PRN #1 box 12/09/18 Unknown Rx NEBS] Budesonide/Formoterol Fumarate 10.2 gm IH BID PRN #1 hfa.aer.ad 12/09/18 Unknown Rx [Symbicort 160-4.5 Mcg Inhaler] Prednisone [predniSONE 10 mg 10 mg PO .TAPER #1 tab.ds.pk 12/09/18 Unknown Rx (6-Day Pack, 21 Tabs)] Amoxicillin/Potassium Clav 1 each PO BID #20 tablet 06/29/19 Unknown Rx [Augmentin 875-125 Tablet] HYDROcodone/APAP 5-325 [[place] 1 each PO Q6HR PRN #14 tablet 06/29/19 Unknown Rx 5/325] Ibuprofen [Motrin] 800 mg PO Q8HR PRN #30 tablet 06/29/19 Unknown Rx Benzonatate [Tessalon Perles] 100 mg PO Q8HR PRN #15 capsule 09/01/19 Unknown Rx Fluticasone/Salmeterol [Advair 1 puff IH BID #1 disk.w.dev 09/01/19 Unknown Rx Diskus 100-50 mcg] guaiFENesin/CODEINE [Robitussin AC] 10 ml PO QHS PRN #70 oral.liqd 09/01/19 Unknown Rx predniSONE [Deltasone] 40 mg PO QDAY 7 Days #14 tab 09/01/19 Unknown Rx Albuterol INH(or & Nicu Only) 2 puff IH QID PRN #8.5 gram 09/24/19 Unknown Rx [ProAir HFA Inhaler] Ipratropium/Albuterol Sulfate 1 ampul IH Q4HR PRN #1 box 09/24/19 Unknown Rx [DUONEB *Not for PRN Use*] Prednisone [predniSONE 10 mg 10 mg PO .TAPER #1 tab.ds.pk 09/24/19 Unknown Rx (6-Day Pack, 21 Tabs)] ED Review of Systems ROS: Stated complaint: ASTHMA Other details as noted in HPI Constitutional: denies: fever Eyes: denies: eye pain ENT: denies: throat pain Respiratory: cough, shortness of breath Cardiovascular: denies: chest pain Endocrine: no symptoms reported Gastrointestinal: denies: abdominal pain Genitourinary: denies: dysuria Musculoskeletal: denies: back pain Neurological: denies: headache Physical Exam - Physical Exam Physical Exam: GENERAL: The patient is well-developed well-nourished female sitting in chair not appearing to be in acute distress. [] HEENT: Normocephalic. Atraumatic. Extraocular motions are intact. Patient has moist mucous membranes. NECK: Supple. Trachea midline CHEST/LUNGS: Diffuse wheezing. There is slightly increased work of breathing HEART/CARDIOVASCULAR: Regular. There is no tachycardia. There is no gallop rub or murmur. ABDOMEN: Abdomen is soft, nontender. Patient has normal bowel sounds. There is no abdominal distention. SKIN: There is no rash. There is no diaphoresis. NEURO: The patient is awake, alert, and oriented. The patient is cooperative. The patient has normal speech MUSCULOSKELETAL: There is no evidence of acute injury. ED Course - Reevaluation(s) Reevaluation #1: 09/24/19 08:23 Patient states she feels improved. Lungs CTA bilaterally ED Medical Decision Making - Differential Diagnosis acute asthma exacerbation, bronchitis, pneumonia Critical care attestation.: If time is entered above; I have spent that time in minutes in the direct care of this critically ill patient, excluding procedure time. ED Disposition Clinical Impression: Acute asthma exacerbation Disposition: DC-01 TO HOME OR SELFCARE Is pt being admited?: No Does the pt Need Aspirin: No Condition: Stable Instructions: Asthma (ED) Additional Instructions: Return to the emergency department should you develop worsening symptoms, inability to tolerate food or liquids, high fever or any other concerns Prescriptions: Ipratropium/Albuterol Sulfate [DUONEB *Not for PRN Use*] 1 ampul IH Q4HR PRN #1 box PRN Reason: Cough and wheezing Prednisone [predniSONE 10 mg (6-Day Pack, 21 Tabs)] 10 mg PO .TAPER #1 tab.ds.pk Albuterol INH(or & Nicu Only) [ProAir HFA Inhaler] 2 puff IH QID PRN #8.5 gram PRN Reason: Shortness Of Breath Referrals: [facility] [Outside] - 3-5 Days Time of Disposition: 08:25
[2019-09-24] MEDS ORDERED: fentaNYL 100 MCG/2 ML INJ IV ONE (06:22)
[2019-09-24 06:31] VITALS: BP 125/66
--- NOTE | 2019-09-24 06:57 | XRay Report ---
CHEST 1 VIEW 6:27 AM INDICATION / CLINICAL INFORMATION: Cough, difficulty breathing and wheezing for 2 days, worsening overnight. COMPARISON: 04/15/2017. FINDINGS: SUPPORT DEVICES: None. HEART / MEDIASTINUM: The heart size and pulmonary vasculature are normal. LUNGS / PLEURA: No significant pulmonary or pleural abnormality. No pneumothorax. ADDITIONAL FINDINGS: No significant additional findings. IMPRESSION: No acute abnormality or significant change. Signer Name: Danis Wiley MD Signed: 09/24/2019 6:53 AM Workstation Name: [id number]
== END 2019-09-24 08:51 | disposition home or self-care (01) ==
LOC: ED 05:48
DX: J45.21 Mild intermittent asthma with (acute) exacerbation (principal); F41.9 Anxiety disorder, unspecified; Z79.899 Other long term (current) drug therapy
CPT/HCPCS: 71045; 94640; 94644; 96374; 96375; 99284; J2405; J3010